=== PATIENT | female | born 1990 | race Caucasian/White ===

== ENCOUNTER 2023-07-17 16:47 | Emergency (ER) | payer MEDICAID ==
[~2023-07-17] VITALS: Ht 157.5 cm; Wt 54.0 kg
[2023-07-17 16:55] VITALS: TEMP 98.6; O2SAT 100
[2023-07-17 17:15] VITALS: BP 142/76; PULSE 94; RESP 20
[2023-07-17] MEDS ORDERED: LACTATED RINGERS 1,000 ML IV SCH (17:15)
[2023-07-17] MEDS ORDERED: KETOROLAC 60MG/2ML VIAL IM ONE (17:15)
[2023-07-17] MEDS ORDERED: METH-653 MT (18:08)
[2023-07-17 18:49] LABS: HCG SCREEN NEGATIVE
== END 2023-07-17 21:14 | disposition home or self-care (01) ==
LOC: ER 16:47
DX: M54.2 Cervicalgia (principal); V49.49XA Driver injured in collision with other motor vehicles in traffic accident, initial encounter; Y93.89 Activity, other specified; Y92.89 Other specified places as the place of occurrence of the external cause; Y99.8 Other external cause status
CPT/HCPCS: 99284; 81025; 84703; 93005; 96372; J1885